=== PATIENT | female | born 1985 | race African-American/Black ===

== ENCOUNTER 2018-01-12 00:50 | Emergency (ER) | payer OTHER ==
[~2018-01-12] VITALS: Ht 165.1 cm; Wt 163.3 kg
[~2018-01-12 00:50] MED LIST: ACETAMINOPHEN-1 EAC1 PO; ALBUTEROL2.5 MG/0.5 INH; APAP500 PO; COUGH SYRU100 MG/5 M PO; DARVOCET-N 1001 EACH PO; DERMOPLAST SPRA56 ML TOP; GUAIFENESIN WI120 ML PO; HYDROCODONE-AP1 EAC6 PO; IBUPROFEN 600600 M1 PO; LANOLIN56 GM TOP; LORTAB 10 MG-3473 ML PO; NAPROSYN500 MG PO; NORCO 5-325 TA1 EACH PO; NYQUIL D COLD295 ML; PREDNISONE 20 M20 MG PO; PRENATA CHEWAB1 EACH; PRENATABS OBN1 EACH PO; PRENATAL TABLE1 EAC3 PO; PROVENTIL HFA6.7 G1 INH; TRANDATE 200 M200 M1 PO; TUCKS MEDICATE1 EAC1 TOP; ZOFRAN 4 MG ORAL4 MG PO; ZOFRAN4 MG PO; ZPAK PO
[2018-01-12] MEDS ORDERED: NORVASC5 MG PO (01:14)
[2018-01-12] MEDS ORDERED: ACETAMINOPHEN PO (01:15)
== END 2018-01-12 01:51 | disposition home or self-care (01) ==
LOC: ER 00:50
DX: J02.0 Streptococcal pharyngitis (principal); H92.11 Otorrhea, right ear; I10 Essential (primary) hypertension; Z87.891 Personal history of nicotine dependence; Z88.6 Allergy status to analgesic agent

== ENCOUNTER 2019-01-26 23:51 | Emergency (ER) | payer OTHER ==
[~2019-01-26] VITALS: Ht 165.1 cm; Wt 163.3 kg
[~2019-01-26 23:51] MED LIST changes: +ACETAMINOPHEN PO; +NORVASC5 MG PO
[2019-01-26] MEDS ORDERED: LISINOPRIL-HCT1 EAC1 PO (23:57)
[2019-01-27 01:08] LABS: BASOPHILS 0.7 % (0.0-2.0); EOSINOPHILS 2.1 % (0.0-3.0); HEMATOCRIT 40.4 % (37.0-47.0); LYMPHOCYTES 42.5 % (24.0-44.0); MCHC 32.2 g/dL (28.0-37.0); MONOCYTES 4.7 % (1.0-8.0); PLATELET COUNT 276 thou/uL (150-400); RBC 4.99 mil/uL (4.20-5.00); RDW 14.9 % (10.5-14.5)
[2019-01-27 01:19] LABS: ANION GAP 6 mmol/L (7-16); BUN 13 mg/dL (7-18); CALCIUM 8.9 mg/dL (8.5-10.1); CHLORIDE 104 mmol/L (98-107); CO2 28 mmol/L (21-32); CREATININE 0.9 mg/dL (0.6-1.0); GLUCOSE 124 mg/dL (74-106); SODIUM 138 mmol/L (136-145)
[2019-01-27 01:28] LABS: ALBUMIN 3.6 g/dL (3.4-5.0); SGOT 7 U/L (15-37); SGPT 7 U/L (30-65); TOTAL BILIRUBIN 0.2 mg/dL (<0.1-1.0); TOTAL PROTEIN 7.4 g/dL (6.4-8.2); TROPONIN-I <0.06 ng/mL (<0.06)
[2019-01-27 02:29] VITALS: BP 136/69
--- NOTE | 2019-01-27 08:09 | EKG ---
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
== END 2019-01-27 02:29 | disposition home or self-care (01) ==
LOC: ER 23:51
PROVIDERS: Student in an Organized Health Care Education/Training Program
DX: R07.89 Other chest pain (principal); I10 Essential (primary) hypertension; R42 Dizziness and giddiness; Z88.6 Allergy status to analgesic agent; Z87.891 Personal history of nicotine dependence

== ENCOUNTER 2019-02-06 23:04 | Emergency (ER) | payer OTHER ==
[~2019-02-06] VITALS: Ht 165.1 cm; Wt 163.3 kg
[~2019-02-06 23:04] MED LIST changes: +LISINOPRIL-HCT1 EAC1 PO
[2019-02-06 23:05] VITALS: BP 139/89
[2019-02-06] MEDS ORDERED: AMOXICILLIN875 MG PO (23:45)
== END 2019-02-06 23:58 | disposition home or self-care (01) ==
LOC: ER 23:04
DX: J02.0 Streptococcal pharyngitis (principal); I10 Essential (primary) hypertension; F17.210 Nicotine dependence, cigarettes, uncomplicated; Z88.6 Allergy status to analgesic agent

== ENCOUNTER 2019-02-09 17:27 | Emergency (ER) | payer OTHER ==
[~2019-02-09] VITALS: Ht 165.1 cm; Wt 163.3 kg
[~2019-02-09 17:27] MED LIST changes: +AMOXICILLIN875 MG PO
[2019-02-09] MEDS ORDERED: PREDNISONE 20 M20 MG PO (17:56)
[2019-02-09] MEDS ORDERED: ACYCLOVIR 200200 MG PO (17:56)
[2019-02-09 19:15] VITALS: BP 166/91
== END 2019-02-09 19:15 | disposition home or self-care (01) ==
LOC: ER 17:27
DX: G51.0 Bell's palsy (principal); I10 Essential (primary) hypertension; F17.210 Nicotine dependence, cigarettes, uncomplicated; Z88.8 Allergy status to other drugs, medicaments and biological substances

== ENCOUNTER 2019-04-01 00:31 | Emergency (ER) | payer OTHER ==
[~2019-04-01] VITALS: Ht 165.1 cm; Wt 158.8 kg
[~2019-04-01 00:31] MED LIST changes: +ACYCLOVIR 200200 MG PO
[2019-04-01] MEDS ORDERED: LISINOPRIL10 MG PO (00:41)
[2019-04-01] MEDS ORDERED: NORCO 5-325 TA1 EAC1 PO (02:20)
[2019-04-01] MEDS ORDERED: MOBIC15 MG PO (02:20)
[2019-04-01] MEDS ORDERED: FLEXERIL PO (02:20)
[2019-04-01 02:26] VITALS: BP 140/90
== END 2019-04-01 02:28 | disposition home or self-care (01) ==
LOC: ER 00:31
DX: M54.41 Lumbago with sciatica, right side (principal); M46.1 Sacroiliitis, not elsewhere classified; I10 Essential (primary) hypertension; F17.210 Nicotine dependence, cigarettes, uncomplicated; Z88.6 Allergy status to analgesic agent